=== PATIENT | female | born 1945 | race Caucasian/White ===

== ENCOUNTER 2021-12-27 06:28 | Inpatient (IN) ==
[2021-12-27] MEDS ORDERED: SODIUM CHLORIDE 0.9% 1,000 ML IV STA (07:36)
[2021-12-27] MEDS ORDERED: cefTRIAXone 1,000 MG in SODIUM CHLORIDE 0.9% 100 ML IV STA (07:37)
[2021-12-27 07:44] LABS: Basophils % 0.2 % (0.0-0.8); Hematocrit 36.8 VOL% (35.7-47.0); Hemoglobin 12.4 GM/DL (12.0-16.0); Immature Granulocytes % 0.3 %; Immature Granulocytes Absolute 0.05 #; Lymphocytes # 0.3 10*3/uL (1.4-4.0); Mean Corpuscular HGB Conc 33.7 GM/DL (32-36); Mean Corpuscular Volume 87.6 FL (87-102); Monocytes # 0.3 10*3/uL (0.11-0.8); Monocytes % 1.8 % (1.7-12.7); Neutrophils % 95.7 % (38.7-73.9); Platelet Count 222 T/CUMM (130-400); Red Cell Distribution Width 13.7 % (9.3-17.3); White Blood Count 15.5 T/CUMM (4-12)
[2021-12-27 07:58] LABS: Bilirubin,Total 1.3 MG/DL (0.20-1.00); Calcium 9.4 MG/DL (8.5-10.1); Osmolality,Calculated 279.4 MOS/KG (273-304); Potassium 3.8 MMOL/L (3.5-5.1); Total Protein 6.9 G/DL (6.4-8.2)
[2021-12-27 08:01] LABS: Bilirubin,Urine Negative (Negative); Blood, Urine Negative (Negative); Glucose,Urine (UA) Negative (Negative); Ketones,Urine Negative (Negative); Mucus,Urine Occasional /LPF (Occasional); Nitrite,Urine Negative (Negative); Protein,Urine Negative (Negative); RBC,Urine 2 /HPF (0-4); Urine Appearance Slightly Hazy (Clear); Urine Color Yellow (Yellow); Urine Specific Gravity 1.014 (1.001-1.035); Urine Urobilinogen < 2.0 eU/dL (<2.0)
[2021-12-27 08:18] LABS: Eosinophils 1 % (0-10); Lymphocytes 2 % (20-55); Platelet Estimate Adequate; Total Cells Counted 100
[2021-12-27 08:19] LABS: Hypochromia Slight; Microcytosis Slight
[2021-12-27] MEDS ORDERED: KETOROLAC 30 MG/1 ML VIAL IV STA (09:09)
[2021-12-27] MEDS ORDERED: traZODone 50 MG TABLET PO PRN (10:29)
[2021-12-27] MEDS ORDERED: DOCUSATE SODIUM 100 MG CAPSULE PO PRN (10:29)
[2021-12-27] MEDS ORDERED: LISINOPRIL/HCTZ 20-12.5 MG TABLET PO SCH (11:00)
[2021-12-27] MEDS: ALBUTEROL/IPRATROPIUM 3 ML NEB RESP TX SCH ×2 (13:00→19:40)
[2021-12-27] MEDS: guaiFENesin/DM ER 600-30 MG TABLET PO SCH ×2 (14:08→21:23)
[2021-12-27] MEDS: PANTOPRAZOLE 40 MG TABLET PO SCH (14:08)
[2021-12-27] MEDS: AZITHROMYCIN INJ 500 MG in SODIUM CHLORIDE 0.9% 250 ML IV SCH (14:08)
[2021-12-27] MEDS: ENOXAPARIN 40 MG/0.4 ML SYRINGE SUBCUT SCH (14:08)
[2021-12-27] MEDS: MULTIVITAMIN (BEROCCA) TABLET PO SCH (14:08)
[2021-12-27] MEDS: SODIUM CHLORIDE 0.45% 1,000 ML IV SCH (14:08)
[2021-12-27] MEDS: KETOROLAC 30 MG/1 ML VIAL IV PRN (16:16)
[2021-12-28] MEDS: KETOROLAC 30 MG/1 ML VIAL IV PRN ×2 (00:47→18:08)
[2021-12-28] MEDS: ALBUTEROL/IPRATROPIUM 3 ML NEB RESP TX SCH ×4 (02:09→18:56)
[2021-12-28] MEDS: SODIUM CHLORIDE 0.45% 1,000 ML IV SCH ×2 (05:35→22:42)
[2021-12-28 06:19] LABS: Basophils % 0.2 % (0.0-0.8); Hematocrit 26.6 VOL% (35.7-47.0); Immature Granulocytes % 0.9 %; Immature Granulocytes Absolute 0.15 #; Lymphocytes # 0.8 10*3/uL (1.4-4.0); Lymphocytes % 5.1 % (21.3-54.2); Mean Corpuscular HGB Conc 33.5 GM/DL (32-36); Mean Corpuscular Volume 89.9 FL (87-102); Mean Platelet Volume 11.8 FL (9.6-12.0); Monocytes # 0.6 10*3/uL (0.11-0.8); Monocytes % 3.9 % (1.7-12.7); Neutrophils % 89.9 % (38.7-73.9); Red Blood Count 2.96 MC/CUMM (3.8-5.5); Red Cell Distribution Width 14.2 % (9.3-17.3)
[2021-12-28 06:20] LABS: Hemoglobin 8.9 GM/DL (12.0-16.0); Platelet Count 167 T/CUMM (130-400)
[2021-12-28 06:31] LABS: Osmolality,Calculated 278.5 MOS/KG (273-304)
[2021-12-28] MEDS ORDERED: MAGNESIUM SULF RIDER 4 GM/100 ML PREMIX IV PRN (07:19)
[2021-12-28] MEDS ORDERED: MAGNESIUM SULF RIDER 2 GM/50 ML PREMIX IV PRN (07:19)
[2021-12-28] MEDS ORDERED: POTASSIUM CHLORIDE 20 MEQ TABLET PO ONE (07:20)
[2021-12-28 08:53] LABS: Folate > 24.00 NG/ML (5.38-24.0); Vitamin B12 206 PG/ML (211-911)
[2021-12-28 08:59] LABS: % Iron Saturation 4.4 % (18-50); Ferritin 113.6 ng/mL (8-252)
[2021-12-28] MEDS: PANTOPRAZOLE 40 MG TABLET PO SCH (09:38)
[2021-12-28] MEDS: guaiFENesin/DM ER 600-30 MG TABLET PO SCH ×2 (09:38→21:52)
[2021-12-28] MEDS: cefTRIAXone 2,000 MG in SODIUM CHLORIDE 0.9% 100 ML IV SCH (09:39)
[2021-12-28] MEDS: MULTIVITAMIN (BEROCCA) TABLET PO SCH (09:39)
[2021-12-28] MEDS: ENOXAPARIN 40 MG/0.4 ML SYRINGE SUBCUT SCH (09:39)
[2021-12-28] MEDS: AZITHROMYCIN INJ 500 MG in SODIUM CHLORIDE 0.9% 250 ML IV SCH (10:56)
[2021-12-28] MEDS: ONDANSETRON 4 MG/2 ML VIAL IV PRN (12:34)
[2021-12-28] MEDS: FERRIC GLUCONATE COMPLEX 125 MG in SODIUM CHLORIDE 0.9% 100 ML IV SCH (17:08)
[2021-12-29] MEDS: ALBUTEROL/IPRATROPIUM 3 ML NEB RESP TX SCH ×4 (00:28→19:23)
[2021-12-29] MEDS: SODIUM CHLORIDE 0.45% 1,000 ML IV SCH ×2 (02:47→16:30)
[2021-12-29 05:50] LABS: Basophils % 0.3 % (0.0-0.8); Eosinophils % 0.3 % (0.00-10.9); Hematocrit 28.7 VOL% (35.7-47.0); Hemoglobin 9.4 GM/DL (12.0-16.0); Immature Granulocytes % 0.5 %; Immature Granulocytes Absolute 0.06 #; Lymphocytes # 0.5 10*3/uL (1.4-4.0); Lymphocytes % 4.4 % (21.3-54.2); Mean Corpuscular HGB Conc 32.8 GM/DL (32-36); Mean Corpuscular Volume 89.1 FL (87-102); Mean Platelet Volume 11.9 FL (9.6-12.0); Monocytes # 0.6 10*3/uL (0.11-0.8); Monocytes % 4.9 % (1.7-12.7); Neutrophils % 89.6 % (38.7-73.9); Platelet Count 168 T/CUMM (130-400); Red Blood Count 3.22 MC/CUMM (3.8-5.5); White Blood Count 11.4 T/CUMM (4-12)
[2021-12-29 06:20] LABS: Band Neutrophils 1 % (0-10); Eosinophils 1 % (0-10); Hypochromia Slight; Lymphocytes 5 % (20-55); Microcytosis Slight; Ovalocytes Slight; Platelet Estimate Adequate; Total Cells Counted 100
[2021-12-29 06:25] LABS: Calcium 8.3 MG/DL (8.5-10.1); Osmolality,Calculated 282.1 MOS/KG (273-304); Potassium 4.2 MMOL/L (3.5-5.1)
[2021-12-29] MEDS: guaiFENesin/DM ER 600-30 MG TABLET PO SCH ×2 (10:08→21:13)
[2021-12-29] MEDS: MULTIVITAMIN (BEROCCA) TABLET PO SCH (10:08)
[2021-12-29] MEDS: CYANOCOBALAMIN 500 MCG TABLET PO SCH (10:09)
[2021-12-29] MEDS: ENOXAPARIN 40 MG/0.4 ML SYRINGE SUBCUT SCH (10:09)
[2021-12-29] MEDS: PANTOPRAZOLE 40 MG TABLET PO SCH (10:09)
[2021-12-29] MEDS: AZITHROMYCIN INJ 500 MG in SODIUM CHLORIDE 0.9% 250 ML IV SCH (10:16)
[2021-12-29] MEDS ORDERED: LACTULOSE 20 GM/30 ML UDCUP PO PRN (11:06)
[2021-12-29] MEDS ORDERED: BISACODYL 10 MG SUPP RECTAL PRN (11:06)
[2021-12-29] MEDS: KETOROLAC 30 MG/1 ML VIAL IV PRN (11:51)
[2021-12-29] MEDS: cefTRIAXone 2,000 MG in SODIUM CHLORIDE 0.9% 100 ML IV SCH (12:47)
[2021-12-29] MEDS: FERRIC GLUCONATE COMPLEX 125 MG in SODIUM CHLORIDE 0.9% 100 ML IV SCH (13:21)
[2021-12-29] MEDS: DOCUSATE SODIUM 100 MG CAPSULE PO SCH (13:21)
[2021-12-29] MEDS: POLYETHYLENE GLYCOL POWDER 17 GM PACK PO SCH (13:21)
[2021-12-29] MEDS: ACETAMINOPHEN 325 MG TABLET PO PRN (13:50)
[2021-12-30] MEDS: ALBUTEROL/IPRATROPIUM 3 ML NEB RESP TX SCH ×3 (05:10→13:28)
[2021-12-30] MEDS: ONDANSETRON 4 MG/2 ML VIAL IV PRN (06:00)
[2021-12-30 06:01] LABS: Basophils % 0.4 % (0.0-0.8); Eosinophils # 0.1 10*3/uL (0.0-0.87); Eosinophils % 1.2 % (0.00-10.9); Hematocrit 29.6 VOL% (35.7-47.0); Hemoglobin 9.8 GM/DL (12.0-16.0); Immature Granulocytes % 0.6 %; Immature Granulocytes Absolute 0.05 #; Lymphocytes # 0.5 10*3/uL (1.4-4.0); Lymphocytes % 6.2 % (21.3-54.2); Mean Corpuscular HGB Conc 33.1 GM/DL (32-36); Mean Corpuscular Volume 88.9 FL (87-102); Mean Platelet Volume 12.1 FL (9.6-12.0); Monocytes # 0.5 10*3/uL (0.11-0.8); Monocytes % 5.8 % (1.7-12.7); Neutrophils % 85.8 % (38.7-73.9); Platelet Count 192 T/CUMM (130-400); Red Blood Count 3.33 MC/CUMM (3.8-5.5); White Blood Count 8.3 T/CUMM (4-12)
[2021-12-30 06:19] LABS: Calcium 8.3 MG/DL (8.5-10.1)
[2021-12-30] MEDS: POLYETHYLENE GLYCOL POWDER 17 GM PACK PO SCH (09:15)
[2021-12-30] MEDS: ACETAMINOPHEN 325 MG TABLET PO PRN (09:16)
[2021-12-30] MEDS: guaiFENesin/DM ER 600-30 MG TABLET PO SCH (09:16)
[2021-12-30] MEDS: MULTIVITAMIN (BEROCCA) TABLET PO SCH (09:16)
[2021-12-30] MEDS: CYANOCOBALAMIN 500 MCG TABLET PO SCH (09:17)
[2021-12-30] MEDS: PANTOPRAZOLE 40 MG TABLET PO SCH (09:17)
[2021-12-30] MEDS: DOCUSATE SODIUM 100 MG CAPSULE PO SCH (09:17)
[2021-12-30] MEDS: cefTRIAXone 2,000 MG in SODIUM CHLORIDE 0.9% 100 ML IV SCH (09:18)
[2021-12-30] MEDS: ENOXAPARIN 40 MG/0.4 ML SYRINGE SUBCUT SCH (09:33)
[2021-12-30] MEDS: FERRIC GLUCONATE COMPLEX 125 MG in SODIUM CHLORIDE 0.9% 100 ML IV SCH (11:33)
[2021-12-30] MEDS: AZITHROMYCIN INJ 500 MG in SODIUM CHLORIDE 0.9% 250 ML IV SCH (11:33)
[2021-12-30 11:53] VITALS: BP 153/77
== END 2021-12-30 14:00 | disposition home or self-care (01) | DRG 194 ==
LOC: N.ED 06:28 → N.TELEN 10:05 → SUATTDRO 10:05 → N.TELEN 11:10
PROVIDERS: ADMIT Hospitalist; ATTEND Internal Medicine